=== PATIENT | female | born 1990 | race Caucasian/White ===

== ENCOUNTER 2018-04-11 12:55 | Emergency (ER) | payer OTHER, SELFPAY ==
[2018-04-11 12:59] VITALS: BP 112/78; PULSE 75; RESP 18; TEMP 37.1; O2SAT 100; BMI 29.4
--- NOTE | 2018-04-11 15:24 | ED.ABDPAIN ---
HPI - Abdominal Pain <JAZMIN Garcia - Last Filed: 04/11/18 21:44> General Chief Complaint: Abdominal Pain Stated Complaint: abdominal pain Time Seen by Provider: 04/11/18 15:23 History of Present Illness HPI narrative: 27-year-old female currently 5 weeks here for bilateral lower pelvic pain for the last couple of weeks. Patient states that she has been treated by her OB provider for same symptoms and was provided with antibiotics symptoms had not resolved. She denies any vaginal bleeding. She denies any vaginal discharge. No urinary symptoms. Last bowel movement was yesterday and was unremarkable. She denies any fevers or chills. No stressors or relievers of her symptoms. She had a recent pelvic ultrasound and was negative. MD complaint: abdominal pain Related Data Home Medications Medication Instructions Recorded Confirmed amoxicillin 125 mg PO TID 04/11/18 04/11/18 Allergies Allergy/AdvReac Type Severity Reaction Status Date / Time [facility] Allergy Verified 04/11/18 13:06 Review of Systems <JAZMIN Garcia - Last Filed: 04/11/18 21:44> Constitutional Denies chills, Denies fever(s), Denies lethargy and Denies weakness Eyes Denies change in vision, Denies eye discharge, Denies irritation and Denies loss of vision Cardiovascular Denies chest pain, Denies irregular heart rhythm, Denies lightheadedness, Denies palpitations, Denies dyspnea, Denies dyspnea on exertion and Denies orthopnea Respiratory Denies cough, Denies dyspnea, Denies dyspnea on exertion and Denies wheezing Gastrointestinal Gastrointestinal: Reports abdominal pain Genitourinary Denies hematuria, Denies flank pain, Denies urinary incontinence and Denies urinary urgency Musculoskeletal Denies back pain, Denies muscle weakness, Denies numbness and Denies tingling Integumentary/Breasts Denies pruritus, Denies erythema, Denies rash and Denies wounds Neurologic Denies confusion, Denies loss of vision, Denies numbness, Denies tingling and Denies weakness Psychiatric Denies anxiety, Denies confusion, Denies depression, Denies homicidal ideation and Denies suicidal ideation Endocrine Denies palpitations Hematologic/Lymphatic Denies easy bruising Allergic/Immunologic Denies wheezing Exam <JAZMIN Garcia - Last Filed: 04/11/18 21:44> Initial Vital Signs Initial Vital Signs: Vital Signs Temperature 98.7 F 04/11/18 12:59 Pulse Rate 75 04/11/18 12:59 Respiratory Rate 18 04/11/18 12:59 Blood Pressure 112/78 04/11/18 12:59 Pulse Oximetry 100 04/11/18 12:59 Const General: cooperative and well developed Nutritional Appearance: well nourished Orientation: alert, awake, oriented x3 and not confused [facility] Mouth: oral mucosae normal and moist mucous membranes Eyes Conjunctivae: conjunctivae normal Sclera: sclerae normal Pupils: PERRL EOM: EOM intact bilaterally Resp Effort & Inspection: normal respiratory effort, able to speak in complete sentences, no respiratory distress and no use of accessory muscles Auscultation: clear to auscultation bilaterally, no rales, no rhonchi and no wheezes Cardio Rate: regular rate Rhythm: regular rhythm Heart Sounds: no click, no gallops, no murmurs and no rubs GI Inspection: non-distended Palpation: soft, no hepatosplenomegaly, No guarding, No pulsatile mass and tender (Tender to bilateral suprapubic region. ) Auscultation: normal bowel sounds Skin General: no rashes or lesions noted, No jaundice and No petechiae Neuro General: alert, oriented x3, gait normal and no focal motor deficits Speech: speech normal <Selina Ventura DO - Last Filed: 04/12/18 08:38> Initial Vital Signs Initial Vital Signs: Vital Signs Temperature 98.7 F 04/11/18 12:59 Pulse Rate 75 04/11/18 12:59 Respiratory Rate 18 04/11/18 12:59 Blood Pressure 112/78 04/11/18 12:59 Pulse Oximetry 100 04/11/18 12:59 Course <JAZMIN Garcia - Last Filed: 04/11/18 21:44> Orders Ordered: Discontinued Medications Sodium Chloride (Normal Saline 0.9%) 1,000 mls @ 1,000 mls/hr IV CONT DAGO Last Infusion: 04/11/18 17:32 Dose: 0 mls/hr Admin: 04/11/18 16:28 Dose: 1,000 mls/hr Vital Signs - 8 hr 04/11/18 16:28 07/18/18 18:27 Temperature 97.4 F L Pulse Rate 84 51 L Respiratory Rate 20 20 Blood Pressure 103/67 Blood Pressure [Right Arm] 105/72 Pulse Oximetry 99 98 <Selina Ventura DO - Last Filed: 04/12/18 08:38> Orders Ordered: Discontinued Medications Sodium Chloride (Normal Saline 0.9%) 1,000 mls @ 1,000 mls/hr IV CONT DAGO Last Infusion: 04/11/18 17:32 Dose: 0 mls/hr Admin: 04/11/18 16:28 Dose: 1,000 mls/hr Vital Signs - 8 hr 04/11/18 16:28 04/11/18 18:27 Temperature 97.4 F L Pulse Rate 84 51 L Respiratory Rate 20 20 Blood Pressure 103/67 Blood Pressure [Right Arm] 105/72 Pulse Oximetry 99 98 MDM - Abdominal Pain <JAZMIN Garcia - Last Filed: 04/11/18 21:44> Lab Data Result diagrams: 04/11/18 16:05 04/11/18 16:05 Lab Results 04/11/18 04/11/18 Range/Units 16:05 16:05 WBC 7.8 (4.5-11.0) X10^3/uL RBC 4.85 (4.0-5.2) X10^6/uL Hgb 12.6 (12.0-16.0) g/dL Hct 39.3 (36-46) % MCV 81.2 (80-100) fL MCH 25.9 L (26-34) PG MCHC 32.0 (30-36) % RDW 17.3 H (11.6-14.8) % Plt Count 309 (150-400) X10^3/uL Neut % (Auto) 60.4 (50-75) % Lymph % (Auto) 29.3 (25-40) % [place] % (Auto) 8.4 (3-14) % Eos % (Auto) 1.3 L (2-4) % Baso % (Auto) 0.6 (0-2) % Neut # (Auto) 4700 (4199-9523) /uL Sodium 144 (137-145) mmol/L Potassium 4.3 (3.4-5.1) mmol/L Chloride 103 (98-107) mmol/L Carbon Dioxide 29 (22-32) mmol/L BUN 10 (7-17) mg/dL Creatinine 0.70 (0.52-1.04) mg/dL Estimated GFR > 60.0 (>60) mL/min BUN/Creatinine Ratio 14.3 (6-22) Glucose 88 (70-100) mg/dL Calcium 9.4 (8.4-10.2) mg/dL Total Bilirubin 0.6 (0.2-1.3) mg/dL AST 37 H (14-36) IU/L ALT 49 (9-52) IU/L Alkaline Phosphatase 74 (38-126) U/L Total Protein 7.0 (6.3-8.2) g/dL Albumin 4.3 (3.5-5.0) g/dL Globulin 2.7 (1.7-4.1) g/dL Albumin/Globulin Ratio 1.6 (1.0-2.8) Lipase 155 (23-300) U/L Point of care testing: Point of Care Testing Test Results Negative Urine Dip Bedside Urine Glucose Negative Bedside Urine Bilirubin - Negative Bedside Urine Ketone - Negative Urine Specific [place] 1.030 Bedside Urine Occult Blood - Negative Bedside Urine pH 6.0 Bedside Urine Protein - Negative Bedside Urine Urobilinogen - Negative Bedside Urine Nitrite - Negative Bedside Urine Leukocytes - Negative Esterase MDM Narrative Medical decision making narrative: CBC and Chem panel were obtained today unremarkable. Lipase was negative urinalysis was negative for urinary tract infection. CT of the abdomen and pelvis was obtained and was not negative for any acute findings. Doubtful that her symptoms are bacterial as she has had multiple antibiotic regimens that have not helped her symptoms. No emergent cause of her pain is found today suspect pain may be secondary to recent delivery she is referred to OBGYN she states that she has an appointment in the next few days for re-evaluation. Use [id number] ibuprofen as needed for any discomfort. Return emergency room for any worsening symptoms. <Selina Ventura, DO - Last Filed: 04/12/18 08:38> Lab Data Lab Results 04/11/18 04/11/18 Range/Units 16:05 16:05 WBC 7.8 (4.5-11.0) X10^3/uL RBC 4.85 (4.0-5.2) X10^6/uL Hgb 12.6 (12.0-16.0) g/dL Hct 39.3 (36-46) % MCV 81.2 (80-100) fL MCH 25.9 L (26-34) PG MCHC 32.0 (30-36) % RDW 17.3 H (11.6-14.8) % Plt Count 309 (150-400) X10^3/uL Neut % (Auto) 60.4 (50-75) % Lymph % (Auto) 29.3 (25-40) % [place] % (Auto) 8.4 (3-14) % Eos % (Auto) 1.3 L (2-4) % Baso % (Auto) 0.6 (0-2) % Neut # (Auto) 4700 (3684-5082) /uL Sodium 144 (137-145) mmol/L Potassium 4.3 (3.4-5.1) mmol/L Chloride 103 (98-107) mmol/L Carbon Dioxide 29 (22-32) mmol/L BUN 10 (7-17) mg/dL Creatinine 0.70 (0.52-1.04) mg/dL Estimated GFR > 60.0 (>60) mL/min BUN/Creatinine Ratio 14.3 (6-22) Glucose 88 (70-100) mg/dL Calcium 9.4 (8.4-10.2) mg/dL Total Bilirubin 0.6 (0.2-1.3) mg/dL AST 37 H (14-36) IU/L ALT 49 (9-52) IU/L Alkaline Phosphatase 74 (38-126) U/L Total Protein 7.0 (6.3-8.2) g/dL Albumin 4.3 (3.5-5.0) g/dL Globulin 2.7 (1.7-4.1) g/dL Albumin/Globulin Ratio 1.6 (1.0-2.8) Lipase 155 (23-300) U/L Point of care testing: Point of Care Testing Test Results Negative Urine Dip Bedside Urine Glucose Negative Bedside Urine Bilirubin - Negative Bedside Urine Ketone - Negative Urine Specific [place] 1.030 Bedside Urine Occult Blood - Negative Bedside Urine pH 6.0 Bedside Urine Protein - Negative Bedside Urine Urobilinogen - Negative Bedside Urine Nitrite - Negative Bedside Urine Leukocytes - Negative Esterase Imaging Data CT scan - abdomen: Radiologist's impression: PROCEDURE: CT ABDOMEN PELVIS W CON INDICATIONS: Bilateral lower abdominal right greater than left TECHNIQUE: After the administration of intravenous contrast, 5 mm thick sections acquired from the diaphragm to the symphysis. 5 mm coronal and sagittal reformats were acquired. For radiation dose reduction, the following was used: automated exposure control, adjustment of mA and/or kV according to patient size. COMPARISON: None. FINDINGS: Image quality: Excellent. ABDOMEN: Lung bases: Lung bases are clear. Heart size is normal. Solid organs: Liver is normal in size and enhancement. Gallbladder unremarkable. Biliary system is non dilated. Pancreas enhances normally. Spleen is normal in size and enhancement. No adrenal nodules. Kidneys demonstrate normal size and enhancement, without hydronephrosis. Peritoneum and bowel: Bowel loops demonstrate normal wall thickness and caliber. No free fluid or air. The appendix appears normal Nodes and vessels: No retroperitoneal or mesenteric adenopathy by size criteria. Aorta and inferior vena cava are normal in size. Miscellaneous: Broad-based midline laxity of the ventral abdominal wall PELVIS: Genitourinary: Bladder is partially collapsed otherwise unremarkable. The uterus appears diffusely enlarged and heterogeneous, presumably appearance. Miscellaneous: No inguinal hernias or adenopathy. Bones: No suspicious bony lesions. No vertebral body compression fractures. IMPRESSION: Overall, no acute abnormality seen. Normal appendix. Presumed appearance of the uterus. Broad-based midline laxity of the anterior abdominal wall. Dictated by: Emeka Meyer M.D. on 04/11/2018 at 16:58 Discharge Plan Departure Patient Disposition: Home, Self-Care Clinical Impression: Abdominal pain Discharge Date/Time: 04/11/18 18:29 Interventions: ED Discharge Assessment Last Done: 04/11/18 18:27 Instructions: DI for Abdominal Pain-Adult Activity Restrictions/Additional Instructions: Laboratory results and CT was unremarkable today. No emergent cause of a your pelvic/abdominal pain is found today. Suspect pain is secondary to recent delivery follow up with OBGYN in the next few days for re-evaluation. Use [id number] ibuprofen as needed for any discomfort. For any worsening symptoms return to the emergency room. Prescriptions: No Action amoxicillin 125 mg Tablet,Chewable 125 mg PO TID RF: 0 Referrals: [facility] [Provider Group] <Selina Ventura DO - Last Filed: 04/12/18 08:38> Cosign ED Attending Cosignature Attestation: I was immediately available in the department for consultation. Documentation has been reviewed. I agree with assessment and plan.
--- NOTE | 2018-04-11 15:30 | DIET.PN ---
Verbal orders given to discontinue IV orders and to call lab for a lab draw for blood samples at this time. Provider does not want IV fluids at this time as well. No new orders.
--- NOTE | 2018-04-11 16:08 | DI.CT.S_ITS ---
PROCEDURE: CT ABDOMEN PELVIS W CON INDICATIONS: Bilateral lower abdominal right greater than left TECHNIQUE: After the administration of intravenous contrast, 5 mm thick sections acquired from the diaphragm to the symphysis. 5 mm coronal and sagittal reformats were acquired. For radiation dose reduction, the following was used: automated exposure control, adjustment of mA and/or kV according to patient size. COMPARISON: None. FINDINGS: Image quality: Excellent. ABDOMEN: Lung bases: Lung bases are clear. Heart size is normal. Solid organs: Liver is normal in size and enhancement. Gallbladder unremarkable. Biliary system is non dilated. Pancreas enhances normally. Spleen is normal in size and enhancement. No adrenal nodules. Kidneys demonstrate normal size and enhancement, without hydronephrosis. Peritoneum and bowel: Bowel loops demonstrate normal wall thickness and caliber. No free fluid or air. The appendix appears normal Nodes and vessels: No retroperitoneal or mesenteric adenopathy by size criteria. Aorta and inferior vena cava are normal in size. Miscellaneous: Broad-based midline laxity of the ventral abdominal wall PELVIS: Genitourinary: Bladder is partially collapsed otherwise unremarkable. The uterus appears diffusely enlarged and heterogeneous, presumably appearance. Miscellaneous: No inguinal hernias or adenopathy. Bones: No suspicious bony lesions. No vertebral body compression fractures. IMPRESSION: Overall, no acute abnormality seen. Normal appendix. Presumed appearance of the uterus. Broad-based midline laxity of the anterior abdominal wall. Dictated by: Emeka Meyre M.D. on 04/11/2018 at 16:58 Approved by: Emeka Meyer M.D. on 04/11/2018 at 17:02
[2018-04-11 16:18] LABS: Add Manual Diff / Slide Review NO; Basophils Percent Auto 0.6 % (0-2); Eosinophils Percent Auto 1.3 % (2-4); Hematocrit 39.3 % (36-46); Hemoglobin 12.6 g/dL (12.0-16.0); Lymphocytes Percent Auto 29.3 % (25-40); Mean Corpuscular Hemoglobin 25.9 PG (26-34); Mean Corpuscular Volume 81.2 fL (80-100); Monocytes Percent Auto 8.4 % (3-14); Neutrophils Absolute Auto 4700 /uL (3000-5900); Neutrophils Percent Auto 60.4 % (50-75); Platelet Count 309 X10^3/uL (150-400); Red Blood Cell Count 4.85 X10^6/uL (4.0-5.2); Red Cell Distribution Width 17.3 % (11.6-14.8); White Blood Cell Count 7.8 X10^3/uL (4.5-11.0)
--- NOTE | 2018-04-11 16:27 | PC.NURSE ---
provider requesting IV now, and 1000ml iv fluid bolus of NS
[2018-04-11 16:28] VITALS: BP 105/72; PULSE 84; RESP 20; O2SAT 99
[2018-04-11] MEDS: SODIUM CHLORIDE 0.9% 1,000 ML 1000 ML IV (16:28)
[2018-04-11 16:31] LABS: Alanine Aminotransferase 49 IU/L (9-52); Albumin 4.3 g/dL (3.5-5.0); Albumin Globulin Ratio 1.6 (1.0-2.8); Alkaline Phosphatase 74 U/L (38-126); Aspartate Aminotransferase 37 IU/L (14-36); BUN Creatinine Ratio 14.3 (6-22); Bilirubin Total 0.6 mg/dL (0.2-1.3); Blood Urea Nitrogen 10 mg/dL (7-17); Calcium 9.4 mg/dL (8.4-10.2); Carbon Dioxide 29 mmol/L (22-32); Chloride 103 mmol/L (98-107); Estimated Glomerular Filt Rate > 60.0 mL/min (>60); Globulin 2.7 g/dL (1.7-4.1); Glucose 88 mg/dL (70-100); HEMOLYSIS < 15 (0-50); Lipase 155 U/L (23-300); Potassium 4.3 mmol/L (3.4-5.1); Sodium 144 mmol/L (137-145)
--- NOTE | 2018-04-11 18:11 | ED_ITS ---
HPI - Abdominal Pain <JAZMIN Garcia - Last Filed: 04/11/18 21:44> General Chief Complaint: Abdominal Pain Stated Complaint: abdominal pain Time Seen by Provider: 04/11/18 15:23 History of Present Illness HPI narrative: 27-year-old female currently 5 weeks here for bilateral lower pelvic pain for the last couple of weeks. Patient states that she has been treated by her OB provider for same symptoms and was provided with antibiotics symptoms had not resolved. She denies any vaginal bleeding. She denies any vaginal discharge. No urinary symptoms. Last bowel movement was yesterday and was unremarkable. She denies any fevers or chills. No stressors or relievers of her symptoms. She had a recent pelvic ultrasound and was negative. MD complaint: abdominal pain Related Data Home Medications Medication Instructions Recorded Confirmed amoxicillin 125 mg PO TID 04/11/18 04/11/18 Allergies Allergy/AdvReac Type Severity Reaction Status Date / Time cefaclor [From [facility]] Allergy Verified 04/11/18 13:06 Review of Systems <JAZMIN Garcia - Last Filed: 04/11/18 21:44> Constitutional Denies chills, Denies fever(s), Denies lethargy and Denies weakness Eyes Denies change in vision, Denies eye discharge, Denies irritation and Denies loss of vision Cardiovascular Denies chest pain, Denies irregular heart rhythm, Denies lightheadedness, Denies palpitations, Denies dyspnea, Denies dyspnea on exertion and Denies orthopnea Respiratory Denies cough, Denies dyspnea, Denies dyspnea on exertion and Denies wheezing Gastrointestinal Gastrointestinal: Reports abdominal pain Genitourinary Denies hematuria, Denies flank pain, Denies urinary incontinence and Denies urinary urgency Musculoskeletal Denies back pain, Denies muscle weakness, Denies numbness and Denies tingling Integumentary/Breasts Denies pruritus, Denies erythema, Denies rash and Denies wounds Neurologic Denies confusion, Denies loss of vision, Denies numbness, Denies tingling and Denies weakness Psychiatric Denies anxiety, Denies confusion, Denies depression, Denies homicidal ideation and Denies suicidal ideation Endocrine Denies palpitations Hematologic/Lymphatic Denies easy bruising Allergic/Immunologic Denies wheezing Exam <JAZMIN Garcia - Last Filed: 04/11/18 21:44> Initial Vital Signs Initial Vital Signs: Vital Signs Temperature 98.7 F 04/11/18 12:59 Pulse Rate 75 04/11/18 12:59 Respiratory Rate 18 04/11/18 12:59 Blood Pressure 112/78 04/11/18 12:59 Pulse Oximetry 100 04/11/18 12:59 Const General: cooperative and well developed Nutritional Appearance: well nourished Orientation: alert, awake, oriented x3 and not confused [facility] Mouth: oral mucosae normal and moist mucous membranes Eyes Conjunctivae: conjunctivae normal Sclera: sclerae normal Pupils: PERRL EOM: EOM intact bilaterally Resp Effort & Inspection: normal respiratory effort, able to speak in complete sentences, no respiratory distress and no use of accessory muscles Auscultation: clear to auscultation bilaterally, no rales, no rhonchi and no wheezes Cardio Rate: regular rate Rhythm: regular rhythm Heart Sounds: no click, no gallops, no murmurs and no rubs GI Inspection: non-distended Palpation: soft, no hepatosplenomegaly, No guarding, No pulsatile mass and tender (Tender to bilateral suprapubic region. ) Auscultation: normal bowel sounds Skin General: no rashes or lesions noted, No jaundice and No petechiae Neuro General: alert, oriented x3, gait normal and no focal motor deficits Speech: speech normal <Selina Ventura DO - Last Filed: 04/12/18 08:38> Initial Vital Signs Initial Vital Signs: Vital Signs Temperature 98.7 F 04/11/18 12:59 Pulse Rate 75 04/11/18 12:59 Respiratory Rate 18 04/11/18 12:59 Blood Pressure 112/78 04/11/18 12:59 Pulse Oximetry 100 04/11/18 12:59 Course <JAZMIN Garcia - Last Filed: 04/11/18 21:44> Orders Ordered: Discontinued Medications Sodium Chloride (Normal Saline 0.9%) 1,000 mls @ 1,000 mls/hr IV CONT DAGO Last Infusion: 04/11/18 17:32 Dose: 0 mls/hr Admin: 04/11/18 16:28 Dose: 1,000 mls/hr Vital Signs - 8 hr 04/11/18 16:28 07/18/18 18:27 Temperature 97.4 F L Pulse Rate 84 51 L Respiratory Rate 20 20 Blood Pressure 103/67 Blood Pressure [Right Arm] 105/72 Pulse Oximetry 99 98 <Selina Ventura DO - Last Filed: 04/12/18 08:38> Orders Ordered: Discontinued Medications Sodium Chloride (Normal Saline 0.9%) 1,000 mls @ 1,000 mls/hr IV CONT DAGO Last Infusion: 04/11/18 17:32 Dose: 0 mls/hr Admin: 04/11/18 16:28 Dose: 1,000 mls/hr Vital Signs - 8 hr 04/11/18 16:28 04/11/18 18:27 Temperature 97.4 F L Pulse Rate 84 51 L Respiratory Rate 20 20 Blood Pressure 103/67 Blood Pressure [Right Arm] 105/72 Pulse Oximetry 99 98 MDM - Abdominal Pain <JAZMIN Garcia - Last Filed: 04/11/18 21:44> Lab Data Result diagrams: 04/11/18 16:05 04/11/18 16:05 Lab Results 04/11/18 04/11/18 Range/Units 16:05 16:05 WBC 7.8 (4.5-11.0) X10^3/uL RBC 4.85 (4.0-5.2) X10^6/uL Hgb 12.6 (12.0-16.0) g/dL Hct 39.3 (36-46) % MCV 81.2 (80-100) fL MCH 25.9 L (26-34) PG MCHC 32.0 (30-36) % RDW 17.3 H (11.6-14.8) % Plt Count 309 (150-400) X10^3/uL Neut % (Auto) 60.4 (50-75) % Lymph % (Auto) 29.3 (25-40) % [place]illi[place] % (Auto) 8.4 (3-14) % Eos % (Auto) 1.3 L (2-4) % Baso % (Auto) 0.6 (0-2) % Neut # (Auto) 4700 (6927-6782) /uL Sodium 144 (137-145) mmol/L Potassium 4.3 (3.4-5.1) mmol/L Chloride 103 (98-107) mmol/L Carbon Dioxide 29 (22-32) mmol/L BUN 10 (7-17) mg/dL Creatinine 0.70 (0.52-1.04) mg/dL Estimated GFR > 60.0 (>60) mL/min BUN/Creatinine Ratio 14.3 (6-22) Glucose 88 (70-100) mg/dL Calcium 9.4 (8.4-10.2) mg/dL Total Bilirubin 0.6 (0.2-1.3) mg/dL AST 37 H (14-36) IU/L ALT 49 (9-52) IU/L Alkaline Phosphatase 74 (38-126) U/L Total Protein 7.0 (6.3-8.2) g/dL Albumin 4.3 (3.5-5.0) g/dL Globulin 2.7 (1.7-4.1) g/dL Albumin/Globulin Ratio 1.6 (1.0-2.8) Lipase 155 (23-300) U/L Point of care testing: Point of Care Testing Test Results Negative Urine Dip Bedside Urine Glucose Negative Bedside Urine Bilirubin - Negative Bedside Urine Ketone - Negative Urine Specific [place] 1.030 Bedside Urine Occult Blood - Negative Bedside Urine pH 6.0 Bedside Urine Protein - Negative Bedside Urine Urobilinogen - Negative Bedside Urine Nitrite - Negative Bedside Urine Leukocytes - Negative Esterase MDM Narrative Medical decision making narrative: CBC and Chem panel were obtained today unremarkable. Lipase was negative urinalysis was negative for urinary tract infection. CT of the abdomen and pelvis was obtained and was not negative for any acute findings. Doubtful that her symptoms are bacterial as she has had multiple antibiotic regimens that have not helped her symptoms. No emergent cause of her pain is found today suspect pain may be secondary to recent delivery she is referred to OBGYN she states that she has an appointment in the next few days for re-evaluation. Use [id number] ibuprofen as needed for any discomfort. Return emergency room for any worsening symptoms. <Selina Ventura, DO - Last Filed: 04/12/18 08:38> Lab Data Lab Results 04/11/18 04/11/18 Range/Units 16:05 16:05 WBC 7.8 (4.5-11.0) X10^3/uL RBC 4.85 (4.0-5.2) X10^6/uL Hgb 12.6 (12.0-16.0) g/dL Hct 39.3 (36-46) % MCV 81.2 (80-100) fL MCH 25.9 L (26-34) PG MCHC 32.0 (30-36) % RDW 17.3 H (11.6-14.8) % Plt Count 309 (150-400) X10^3/uL Neut % (Auto) 60.4 (50-75) % Lymph % (Auto) 29.3 (25-40) % Gilliam % (Auto) 8.4 (3-14) % Eos % (Auto) 1.3 L (2-4) % Baso % (Auto) 0.6 (0-2) % Neut # (Auto) 4700 (4464-1792) /uL Sodium 144 (137-145) mmol/L Potassium 4.3 (3.4-5.1) mmol/L Chloride 103 (98-107) mmol/L Carbon Dioxide 29 (22-32) mmol/L BUN 10 (7-17) mg/dL Creatinine 0.70 (0.52-1.04) mg/dL Estimated GFR > 60.0 (>60) mL/min BUN/Creatinine Ratio 14.3 (6-22) Glucose 88 (70-100) mg/dL Calcium 9.4 (8.4-10.2) mg/dL Total Bilirubin 0.6 (0.2-1.3) mg/dL AST 37 H (14-36) IU/L ALT 49 (9-52) IU/L Alkaline Phosphatase 74 (38-126) U/L Total Protein 7.0 (6.3-8.2) g/dL Albumin 4.3 (3.5-5.0) g/dL Globulin 2.7 (1.7-4.1) g/dL Albumin/Globulin Ratio 1.6 (1.0-2.8) Lipase 155 (23-300) U/L Point of care testing: Point of Care Testing Test Results Negative Urine Dip Bedside Urine Glucose Negative Bedside Urine Bilirubin - Negative Bedside Urine Ketone - Negative Urine Specific [place] 1.030 Bedside Urine Occult Blood - Negative Bedside Urine pH 6.0 Bedside Urine Protein - Negative Bedside Urine Urobilinogen - Negative Bedside Urine Nitrite - Negative Bedside Urine Leukocytes - Negative Esterase Imaging Data CT scan - abdomen: Radiologist's impression: PROCEDURE: CT ABDOMEN PELVIS W CON INDICATIONS: Bilateral lower abdominal right greater than left TECHNIQUE: After the administration of intravenous contrast, 5 mm thick sections acquired from the diaphragm to the symphysis. 5 mm coronal and sagittal reformats were acquired. For radiation dose reduction, the following was used: automated exposure control, adjustment of mA and/or kV according to patient size. COMPARISON: None. FINDINGS: Image quality: Excellent. ABDOMEN: Lung bases: Lung bases are clear. Heart size is normal. Solid organs: Liver is normal in size and enhancement. Gallbladder unremarkable. Biliary system is non dilated. Pancreas enhances normally. Spleen is normal in size and enhancement. No adrenal nodules. Kidneys demonstrate normal size and enhancement, without hydronephrosis. Peritoneum and bowel: Bowel loops demonstrate normal wall thickness and caliber. No free fluid or air. The appendix appears normal Nodes and vessels: No retroperitoneal or mesenteric adenopathy by size criteria. Aorta and inferior vena cava are normal in size. Miscellaneous: Broad-based midline laxity of the ventral abdominal wall PELVIS: Genitourinary: Bladder is partially collapsed otherwise unremarkable. The uterus appears diffusely enlarged and heterogeneous, presumably appearance. Miscellaneous: No inguinal hernias or adenopathy. Bones: No suspicious bony lesions. No vertebral body compression fractures. IMPRESSION: Overall, no acute abnormality seen. Normal appendix. Presumed appearance of the uterus. Broad-based midline laxity of the anterior abdominal wall. Dictated by: Emeka Meyer M.D. on 04/11/2018 at 16:58 Discharge Plan Departure Patient Disposition: Home, Self-Care Clinical Impression: Abdominal pain Discharge Date/Time: 04/11/18 18:29 Interventions: ED Discharge Assessment Last Done: 04/11/18 18:27 Instructions: DI for Abdominal Pain-Adult Activity Restrictions/Additional Instructions: Laboratory results and CT was unremarkable today. No emergent cause of a your pelvic/abdominal pain is found today. Suspect pain is secondary to recent delivery follow up with OBGYN in the next few days for re-evaluation. Use over- the-counter ibuprofen as needed for any discomfort. For any worsening symptoms return to the emergency room. Prescriptions: No Action amoxicillin 125 mg Tablet,Chewable 125 mg PO TID RF: 0 Referrals: [facility] [Provider Group] <Selina Ventura DO - Last Filed: 04/12/18 08:38> Cosign ED Attending Cosignature Attestation: I was immediately available in the department for consultation. Documentation has been reviewed. I agree with assessment and plan.
[2018-04-11 18:27] VITALS: BP 103/67; PULSE 51; RESP 20; TEMP 36.3; O2SAT 98
== END 2018-04-11 18:29 | disposition home or self-care (01) ==
PROVIDERS: Emergency Medicine; Emergency Provider Nurse Practitioner Family
DX: R10.9 Unspecified abdominal pain (principal)
CPT/HCPCS: 36591; 74177; 80053; 81003; 81025; 83690; 85025; 96360; 99283; 99285; Q9967

== ENCOUNTER 2019-04-17 13:45 | Emergency (ER) | payer OTHER, SELFPAY ==
[2019-04-17 13:54] VITALS: BP 124/86; PULSE 66; RESP 16; O2SAT 100
--- NOTE | 2019-04-17 14:10 | ED.ABDPAIN ---
HPI - Abdominal Pain General Chief Complaint: Abdominal Pain Stated Complaint: Abd pain lt side but moving Time Seen by Provider: 04/17/19 13:58 Source: patient and family Mode of arrival: ambulatory Limitations: no limitations History of Present Illness HPI narrative: 28-year-old female comes emergency department complaint of abdominal pain that is been going on for about a year. She states pretty much constant but waxes and wanes in intensity. She states it is mostly on the left side radiating over to the right. She states in her lower abdomen. She states she has had chronic nausea with it but intermittently. She does not had any vomiting. She states normal bowel movements. She states normally urination with no dysuria urgency or frequency. She denies any vaginal bleeding or discharge. 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 Orta. She states that because she is continuing to have her symptoms and they are perhaps a little bit worse they recommended she come in for evaluation and ultrasound. Patient has a prescription for hydrocodone, her last dose was last night. She defers anything additional for pain currently. She states that she does have some tingling in her lower extremities. She states that she has not had any falls, no weakness currently. No loss of bowel or bladder control. She denies any other medical issues, denies any prior surgeries. Related Data Home Medications Medication Instructions Recorded Confirmed hydrocodone-acetaminophen 1 tab PO PRN PRN 04/17/19 04/17/19 ibuprofen 1 dose PO PRN PRN 04/17/19 04/17/19 Allergies Allergy/AdvReac Type Severity Reaction Status Date / Time cefaclor [From [facility]] Allergy Verified 04/11/18 13:06 Review of Systems Review of Systems ROS Unobtainable: All systems reviewed & are unremarkable except as noted in HPI and below Constitutional Denies chills, Denies fever(s) and Denies weakness Cardiovascular Denies chest pain and Denies dyspnea Respiratory Denies dyspnea Gastrointestinal Gastrointestinal: Reports abdominal pain, Denies melena, Denies hematochezia, Denies change in bowel habits, Denies diarrhea, Reports nausea (intermittent) and Denies vomiting Genitourinary Denies abnormal menses, Denies abnormal vaginal bleeding, Denies hematuria, Denies urinary frequency, Denies dysuria, Reports pelvic pain, Denies flank pain, Denies urinary incontinence, Denies urinary hesitancy, Denies urinary urgency, Denies vaginal discharge and Denies vaginal odor Musculoskeletal Denies abnormal gait, Denies back pain, Denies numbness and Reports tingling Neurologic Denies abnormal gait, Denies numbness, Reports tingling and Denies weakness [facility] Social History Smoking Status: Never smoker Social History Smoking Status: Never smoker Exam Narrative Exam Narrative: GENERAL: Alert and oriented x three, well nourished, well appearing female in no acute distress. HEENT: Head normocephalic, atraumatic, EOMI, pupils reactive, face symmetric, moist mucous membranes NECK: Supple, full range of motion CARDIOVASCULAR: Regular rate and rhythm without murmurs, rubs or gallops. RESPIRATORY: Breath sounds equal bilaterally, no wheezes rales or rhonchi. ABDOMEN: Soft, mild tenderness in bilateral lower abdomen. Normoactive bowel sounds all 4 quadrants. No guarding or rebound, rigidity, no mass : No CVA tenderness EXTREMITIES: Normal range of motion, no clubbing or edema. Neurovascularly intact NEUROLOGICAL: Cranial nerves II through XII grossly intact. Moving all extremities SKIN: Warm, dry, no petechiae, no rashes or lesions. Initial Vital Signs Initial Vital Signs: Vital Signs Pulse Rate 66 04/17/19 13:54 Respiratory Rate 16 04/17/19 13:54 Blood Pressure 124/86 04/17/19 13:54 Pulse Oximetry 100 04/17/19 13:54 Course Orders Ordered: ED Orders 04/17/19 14:11 US pelvic complete Stat 04/17/19 14:19 Complete Blood Count AUTO DIFF Stat Comprehensive Metabolic Panel Stat Lipase Stat 04/17/19 14:55 Urine Culture Stat Urine Microscopic Stat Vital Signs - 8 hr 04/17/19 13:54 04/17/19 16:08 Temperature 98.1 F Pulse Rate 66 72 Respiratory Rate 16 18 Blood Pressure 124/86 Blood Pressure [Left Arm] 102/72 Pulse Oximetry 100 98 MDM - Abdominal Pain Lab Data Attestation: I reviewed the patient's lab results. Result diagrams: 04/17/19 14:19 04/17/19 14:19 Lab Results 04/17/19 04/17/19 04/17/19 Range/Units 14:19 14:19 14:19 WBC 9.8 (4.5-11.0) X10^3/uL RBC 4.53 (4.0-5.2) X10^6/uL Hgb 13.4 (12.0-16.0) g/dL Hct 39.2 (36-46) % MCV 86.5 (80-100) fL MCH 29.6 (26-34) PG MCHC 34.3 (30-36) % RDW 12.7 (11.6-14.8) % Plt Count 355 (150-400) X10^3/uL Neut % (Auto) 61.0 (50-75) % Lymph % (Auto) 29.7 (25-40) % [place] % (Auto) 7.8 (3-14) % Eos % (Auto) 0.9 L (2-4) % Baso % (Auto) 0.6 (0-2) % Neut # (Auto) 6000 (7955-2427) /uL Lymph # (Auto) 2900 (9846-6870) /uL [place] # (Auto) 800 (0-900) /uL Eos # (Auto) 100 (0-450) /uL Baso # (Auto) 100 (0-100) /uL Sodium 140 (137-145) mmol/L Potassium 4.1 (3.4-5.1) mmol/L Chloride 106 (98-107) mmol/L Carbon Dioxide 25 (22-32) mmol/L BUN 7 (7-17) mg/dL Creatinine 0.70 (0.52-1.04) mg/dL Estimated GFR > 60.0 (>60) mL/min BUN/Creatinine Ratio 10.0 (6-22) Glucose 91 (70-100) mg/dL Calcium 9.4 (8.4-10.2) mg/dL Total Bilirubin 0.4 (0.2-1.3) mg/dL AST 18 (14-36) IU/L ALT 17 (9-52) IU/L Alkaline Phosphatase 59 (38-126) U/L Total Protein 7.1 (6.3-8.2) g/dL Albumin 4.2 (3.5-5.0) g/dL Globulin 2.9 (1.7-4.1) g/dL Albumin/Globulin Ratio 1.4 (1.0-2.8) Lipase 136 (23-300) U/L Urine RBC (0-5/HPF) Urine WBC (0-5/HPF) Ur Squamous Epith Cells (0-5/HPF) Urine Bacteria (None) Ur Culture Indicated? Micro UA Comment 04/17/19 Range/Units 14:55 WBC (4.5-11.0) X10^3/uL RBC (4.0-5.2) X10^6/uL Hgb (12.0-16.0) g/dL Hct (36-46) % MCV (80-100) fL MCH (26-34) PG MCHC (30-36) % RDW (11.6-14.8) % Plt Count (150-400) X10^3/uL Neut % (Auto) (50-75) % Lymph % (Auto) (25-40) % [place] % (Auto) (3-14) % Eos % (Auto) (2-4) % Baso % (Auto) (0-2) % Neut # (Auto) (5784-4856) /uL Lymph # (Auto) (7974-4766) /uL [place] # (Auto) (0-900) /uL Eos # (Auto) (0-450) /uL Baso # (Auto) (0-100) /uL Sodium (137-145) mmol/L Potassium (3.4-5.1) mmol/L Chloride (98-107) mmol/L Carbon Dioxide (22-32) mmol/L BUN (7-17) mg/dL Creatinine (0.52-1.04) mg/dL Estimated GFR (>60) mL/min BUN/Creatinine Ratio (6-22) Glucose (70-100) mg/dL Calcium (8.4-10.2) mg/dL Total Bilirubin (0.2-1.3) mg/dL AST (14-36) IU/L ALT (9-52) IU/L Alkaline Phosphatase (38-126) U/L Total Protein (6.3-8.2) g/dL Albumin (3.5-5.0) g/dL Globulin (1.7-4.1) g/dL Albumin/Globulin Ratio (1.0-2.8) Lipase (23-300) U/L Urine RBC 0-1/hpf (0-5/HPF) Urine WBC 0-1/hpf (0-5/HPF) Ur Squamous Epith Cells 0-1 /hpf (0-5/HPF) Urine Bacteria Moderate (10-30) H (None) Ur Culture Indicated? Specimen cultured Micro UA Comment Betty esterase + Point of care testing: Point of Care Testing Test Results Negative Urine Dip Bedside Urine Glucose Negative Bedside Urine Bilirubin - Negative Bedside Urine Ketone - Negative Urine Specific [place] 1.015 Bedside Urine Occult Blood +/- Bedside Urine pH 6.0 Bedside Urine Protein - Negative Bedside Urine Urobilinogen - Negative Bedside Urine Nitrite - Negative Bedside Urine Leukocytes +/- 15 Esterase Imaging Data pelvic US: Radiologist's impression: Lisset Diaz 28 F [address] [address] Ultrasound Report Signed Patient: Lisset Diaz MMR#: [id number] : 1990Acct:[id number] Age/Sex: 28 / FDate of Service: 04/17/19 Loc: ED Accession Number: [id number] Procedure: US pelvic complete Ordering Provider: Rosanne Mendez D.O. PROCEDURE: US PELVIC COMPLETE INDICATIONS: HX PELVIC CONGESTIVE SYNDROME; PAIN TECHNIQUE: Real-time scanning was performed of the pelvic organs, with image documentation. Additional endovaginal scanning was necessary due to incomplete visualization of the adnexal and endometrial structures by transabdominal scanning. COMPARISON: [facility], CT, CT ABDOMEN PELVIS W CON, 04/11/2018, 16:36. FINDINGS: Transabdominal scanning: Limited scanning through the kidneys shows no hydronephrosis. No pathologic free abdominal or pelvic fluid. Endovaginal scanning: Uterus: Uterus is normal in size at the 7.5 x 3.7 x 5.2 cm. The endometrium measures 9 mm in combined thickness. Increased vascularity along the periphery uterus is present. There is heterogeneity of the endometrium without a definable endometrial quality. No focal myometrial lesions are present. Ovaries: The right ovary measures 3.1 x 1.9 x 1.7 cm. The left ovary measures 2.3 x 1.9 x 3.3 cm. Both ovaries are normal in size without cystic or solid mass. Blood flow is demonstrated to both ovaries, which have a normal arterial Doppler waveform. IMPRESSION: 1. Mild heterogeneity of the uterus is nonspecific and may be within normal limits. No definable uterine abnormalities are appreciated. There is slight increased vascularity to the uterus itself, which may be seen in the setting of pelvic congestion syndrome. 2. Unremarkable ovaries. Dictated by: Henok Teixeira M.D. on 04/17/2019 at 14:25 Approved by: Henok Teixeira M.D. on 04/17/2019 at 14:28 [facility] Narrative Medical decision making narrative: Ultrasound shows some mild heterogeneity of the uterus which is nonspecific could be within normal limits. There is slight increased vascularity to the uterus itself which could be seen in the setting of pelvic congestion syndrome. Unremarkable ovaries. Lab work otherwise is. Patient's exam is fairly benign. Discussed with patient plan for DC home. She has hydrocodone at home which she can continue and to follow up with her physician. Labs were nondiagnostic. Patient has some bacteria urine positive for leukocyte esterase negative for nitrate and sent for culture. Discharge Plan Departure Patient Disposition: Home Clinical Impression: Abdominal pain Discharge Date/Time: 04/17/19 16:10 Interventions: ED Discharge Assessment Last Done: 04/17/19 16:10 Instructions: DI for Abdominal Pain-Adult Activity Restrictions/Additional Instructions: Follow up with your physician in the next week. Call for an appointment. Continue home medications including your pain medication as prescribed. Return to the emergency department for fevers greater 100.4 F, rapidly worsening pain, persistent vomiting, black or bloody stools, difficulty with urination, no vaginal bleeding or discharge or other new or concerning symptoms. Prescriptions: No Action ibuprofen 200 mg Tablet 1 dose PO PRN PRN (Reason: pain) RF: 0 hydrocodone-acetaminophen 1 tab PO PRN PRN (Reason: pain) RF: 0 Referrals: Savi Orta DO [Non-Staff] -
--- NOTE | 2019-04-17 14:15 | ED_ITS ---
HPI - Abdominal Pain General Chief Complaint: Abdominal Pain Stated Complaint: Abd pain lt side but moving Time Seen by Provider: 04/17/19 13:58 Source: patient and family Mode of arrival: ambulatory Limitations: no limitations History of Present Illness HPI narrative: 28-year-old female comes emergency department complaint of abdominal pain that is been going on for about a year. She states pretty much constant but waxes and wanes in intensity. She states it is mostly on the left side radiating over to the right. She states in her lower abdomen. She states she has had chronic nausea with it but intermittently. She does not had any vomiting. She states normal bowel movements. She states normally urination with no dysuria urgency or frequency. She denies any vaginal bleeding or discharge. 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 Orta. She states that because she is continuing to have her symptoms and they are perhaps a little bit worse they recommended she come in for evaluation and ultrasound. Patient has a prescription for hydrocodone, her last dose was last night. She defers anything additional for pain currently. She states that she does have some tingling in her lower extremities. She states that she has not had any falls, no weakness currently. No loss of bowel or bladder control. She denies any other medical issues, denies any prior surgeries. Related Data Home Medications Medication Instructions Recorded Confirmed hydrocodone-acetaminophen 1 tab PO PRN PRN 04/17/19 04/17/19 ibuprofen 1 dose PO PRN PRN 04/17/19 04/17/19 Allergies Allergy/AdvReac Type Severity Reaction Status Date / Time cefaclor [From [facility]] Allergy Verified 04/11/18 13:06 Review of Systems Review of Systems ROS Unobtainable: All systems reviewed & are unremarkable except as noted in HPI and below Constitutional Denies chills, Denies fever(s) and Denies weakness Cardiovascular Denies chest pain and Denies dyspnea Respiratory Denies dyspnea Gastrointestinal Gastrointestinal: Reports abdominal pain, Denies melena, Denies hematochezia, Denies change in bowel habits, Denies diarrhea, Reports nausea (intermittent) and Denies vomiting Genitourinary Denies abnormal menses, Denies abnormal vaginal bleeding, Denies hematuria, Denies urinary frequency, Denies dysuria, Reports pelvic pain, Denies flank pain, Denies urinary incontinence, Denies urinary hesitancy, Denies urinary urgency, Denies vaginal discharge and Denies vaginal odor Musculoskeletal Denies abnormal gait, Denies back pain, Denies numbness and Reports tingling Neurologic Denies abnormal gait, Denies numbness, Reports tingling and Denies weakness [facility] Social History Smoking Status: Never smoker Social History Smoking Status: Never smoker Exam Narrative Exam Narrative: GENERAL: Alert and oriented x three, well nourished, well appearing female in no acute distress. HEENT: Head normocephalic, atraumatic, EOMI, pupils reactive, face symmetric, moist mucous membranes NECK: Supple, full range of motion CARDIOVASCULAR: Regular rate and rhythm without murmurs, rubs or gallops. RESPIRATORY: Breath sounds equal bilaterally, no wheezes rales or rhonchi. ABDOMEN: Soft, mild tenderness in bilateral lower abdomen. Normoactive bowel sounds all 4 quadrants. No guarding or rebound, rigidity, no mass : No CVA tenderness EXTREMITIES: Normal range of motion, no clubbing or edema. Neurovascularly intact NEUROLOGICAL: Cranial nerves II through XII grossly intact. Moving all extremities SKIN: Warm, dry, no petechiae, no rashes or lesions. Initial Vital Signs Initial Vital Signs: Vital Signs Pulse Rate 66 04/17/19 13:54 Respiratory Rate 16 04/17/19 13:54 Blood Pressure 124/86 04/17/19 13:54 Pulse Oximetry 100 04/17/19 13:54 Course Orders Ordered: ED Orders 04/17/19 14:11 US pelvic complete Stat 04/17/19 14:19 Complete Blood Count AUTO DIFF Stat Comprehensive Metabolic Panel Stat Lipase Stat 04/17/19 14:55 Urine Culture Stat Urine Microscopic Stat Vital Signs - 8 hr 04/17/19 13:54 04/17/19 16:08 Temperature 98.1 F Pulse Rate 66 72 Respiratory Rate 16 18 Blood Pressure 124/86 Blood Pressure [Left Arm] 102/72 Pulse Oximetry 100 98 MDM - Abdominal Pain Lab Data Attestation: I reviewed the patient's lab results. Result diagrams: 04/17/19 14:19 04/17/19 14:19 Lab Results 04/17/19 04/17/19 04/17/19 Range/Units 14:19 14:19 14:19 WBC 9.8 (4.5-11.0) X10^3/uL RBC 4.53 (4.0-5.2) X10^6/uL Hgb 13.4 (12.0-16.0) g/dL Hct 39.2 (36-46) % MCV 86.5 (80-100) fL MCH 29.6 (26-34) PG MCHC 34.3 (30-36) % RDW 12.7 (11.6-14.8) % Plt Count 355 (150-400) X10^3/uL Neut % (Auto) 61.0 (50-75) % Lymph % (Auto) 29.7 (25-40) % Roberts % (Auto) 7.8 (3-14) % Eos % (Auto) 0.9 L (2-4) % Baso % (Auto) 0.6 (0-2) % Neut # (Auto) 6000 (3321-4343) /uL Lymph # (Auto) 2900 (4110-2417) /uL Roberts # (Auto) 800 (0-900) /uL Eos # (Auto) 100 (0-450) /uL Baso # (Auto) 100 (0-100) /uL Sodium 140 (137-145) mmol/L Potassium 4.1 (3.4-5.1) mmol/L Chloride 106 (98-107) mmol/L Carbon Dioxide 25 (22-32) mmol/L BUN 7 (7-17) mg/dL Creatinine 0.70 (0.52-1.04) mg/dL Estimated GFR > 60.0 (>60) mL/min BUN/Creatinine Ratio 10.0 (6-22) Glucose 91 (70-100) mg/dL Calcium 9.4 (8.4-10.2) mg/dL Total Bilirubin 0.4 (0.2-1.3) mg/dL AST 18 (14-36) IU/L ALT 17 (9-52) IU/L Alkaline Phosphatase 59 (38-126) U/L Total Protein 7.1 (6.3-8.2) g/dL Albumin 4.2 (3.5-5.0) g/dL Globulin 2.9 (1.7-4.1) g/dL Albumin/Globulin Ratio 1.4 (1.0-2.8) Lipase 136 (23-300) U/L Urine RBC (0-5/HPF) Urine WBC (0-5/HPF) Ur Squamous Epith Cells (0-5/HPF) Urine Bacteria (None) Ur Culture Indicated? Micro UA Comment 04/17/19 Range/Units 14:55 WBC (4.5-11.0) X10^3/uL RBC (4.0-5.2) X10^6/uL Hgb (12.0-16.0) g/dL Hct (36-46) % MCV (80-100) fL MCH (26-34) PG MCHC (30-36) % RDW (11.6-14.8) % Plt Count (150-400) X10^3/uL Neut % (Auto) (50-75) % Lymph % (Auto) (25-40) % Roberts % (Auto) (3-14) % Eos % (Auto) (2-4) % Baso % (Auto) (0-2) % Neut # (Auto) (6616-7988) /uL Lymph # (Auto) (1829-9695) /uL Roberts # (Auto) (0-900) /uL Eos # (Auto) (0-450) /uL Baso # (Auto) (0-100) /uL Sodium (137-145) mmol/L Potassium (3.4-5.1) mmol/L Chloride (98-107) mmol/L Carbon Dioxide (22-32) mmol/L BUN (7-17) mg/dL Creatinine (0.52-1.04) mg/dL Estimated GFR (>60) mL/min BUN/Creatinine Ratio (6-22) Glucose (70-100) mg/dL Calcium (8.4-10.2) mg/dL Total Bilirubin (0.2-1.3) mg/dL AST (14-36) IU/L ALT (9-52) IU/L Alkaline Phosphatase (38-126) U/L Total Protein (6.3-8.2) g/dL Albumin (3.5-5.0) g/dL Globulin (1.7-4.1) g/dL Albumin/Globulin Ratio (1.0-2.8) Lipase (23-300) U/L Urine RBC 0-1/hpf (0-5/HPF) Urine WBC 0-1/hpf (0-5/HPF) Ur Squamous Epith Cells 0-1 /hpf (0-5/HPF) Urine Bacteria Moderate (10-30) H (None) Ur Culture Indicated? Specimen cultured Micro UA Comment Betty esterase + Point of care testing: Point of Care Testing Test Results Negative Urine Dip Bedside Urine Glucose Negative Bedside Urine Bilirubin - Negative Bedside Urine Ketone - Negative Urine Specific [place] 1.015 Bedside Urine Occult Blood +/- Bedside Urine pH 6.0 Bedside Urine Protein - Negative Bedside Urine Urobilinogen - Negative Bedside Urine Nitrite - Negative Bedside Urine Leukocytes +/- 15 Esterase Imaging Data pelvic US: Radiologist's impression: Lisset Diaz 28 F [address] [address] Ultrasound Report Signed Patient: Lisset Diaz MMR#: [id number] : 1990Acct:[id number] Age/Sex: 28 / FDate of Service: 04/17/19 Loc: ED Accession Number: [id number] Procedure: US pelvic complete Ordering Provider: Rosanne Mendez D.O. PROCEDURE: US PELVIC COMPLETE INDICATIONS: HX PELVIC CONGESTIVE SYNDROME; PAIN TECHNIQUE: Real-time scanning was performed of the pelvic organs, with image documentation. Additional endovaginal scanning was necessary due to incomplete visualization of the adnexal and endometrial structures by transabdominal scanning. COMPARISON: [facility], CT, CT ABDOMEN PELVIS W CON, 04/11/2018, 16:36. FINDINGS: Transabdominal scanning: Limited scanning through the kidneys shows no hydronephrosis. No pathologic free abdominal or pelvic fluid. Endovaginal scanning: Uterus: Uterus is normal in size at the 7.5 x 3.7 x 5.2 cm. The endometrium measures 9 mm in combined thickness. Increased vascularity along the periphery uterus is present. There is heterogeneity of the endometrium without a definable endometrial quality. No focal myometrial lesions are present. Ovaries: The right ovary measures 3.1 x 1.9 x 1.7 cm. The left ovary measures 2.3 x 1.9 x 3.3 cm. Both ovaries are normal in size without cystic or solid mass. Blood flow is demonstrated to both ovaries, which have a normal arterial Doppler waveform. IMPRESSION: 1. Mild heterogeneity of the uterus is nonspecific and may be within normal limits. No definable uterine abnormalities are appreciated. There is slight increased vascularity to the uterus itself, which may be seen in the setting of pelvic congestion syndrome. 2. Unremarkable ovaries. Dictated by: Henok Teixeira M.D. on 04/17/2019 at 14:25 Approved by: Henok Teixeira M.D. on 04/17/2019 at 14:28 [facility] Narrative Medical decision making narrative: Ultrasound shows some mild heterogeneity of the uterus which is nonspecific could be within normal limits. There is slight increased vascularity to the uterus itself which could be seen in the setting of pelvic congestion syndrome. Unremarkable ovaries. Lab work otherwise is. Patient's exam is fairly benign. Discussed with patient plan for DC home. She has hydrocodone at home which she can continue and to follow up with her physician. Labs were nondiagnostic. Patient has some bacteria urine positive for leukocyte esterase negative for nitrate and sent for culture. Discharge Plan Departure Patient Disposition: Home Clinical Impression: Abdominal pain Discharge Date/Time: 04/17/19 16:10 Interventions: ED Discharge Assessment Last Done: 04/17/19 16:10 Instructions: DI for Abdominal Pain-Adult Activity Restrictions/Additional Instructions: Follow up with your physician in the next week. Call for an appointment. Continue home medications including your pain medication as prescribed. Return to the emergency department for fevers greater 100.4 F, rapidly worsening pain, persistent vomiting, black or bloody stools, difficulty with urination, no vaginal bleeding or discharge or other new or concerning symptoms. Prescriptions: No Action ibuprofen 200 mg Tablet 1 dose PO PRN PRN (Reason: pain) RF: 0 hydrocodone-acetaminophen 1 tab PO PRN PRN (Reason: pain) RF: 0 Referrals: Savi Orta DO [Non-Staff] -
[2019-04-17 14:23] LABS: Add Manual Diff / Slide Review NO; Basophils Absolute Auto 100 /uL (0-100); Basophils Percent Auto 0.6 % (0-2); Eosinophils Absolute Auto 100 /uL (0-450); Eosinophils Percent Auto 0.9 % (2-4); Hematocrit 39.2 % (36-46); Hemoglobin 13.4 g/dL (12.0-16.0); Lymphocytes Absolute Auto 2900 /uL (1100-4500); Lymphocytes Percent Auto 29.7 % (25-40); Mean Corpuscular HGB Conc 34.3 % (30-36); Mean Corpuscular Hemoglobin 29.6 PG (26-34); Mean Corpuscular Volume 86.5 fL (80-100); Monocytes Absolute Auto 800 /uL (0-900); Monocytes Percent Auto 7.8 % (3-14); Neutrophils Absolute Auto 6000 /uL (1500-7000); Platelet Count 355 X10^3/uL (150-400); Red Blood Cell Count 4.53 X10^6/uL (4.0-5.2); Red Cell Distribution Width 12.7 % (11.6-14.8); White Blood Cell Count 9.8 X10^3/uL (4.5-11.0)
[2019-04-17 14:37] LABS: Alanine Aminotransferase 17 IU/L (9-52); Albumin 4.2 g/dL (3.5-5.0); Albumin Globulin Ratio 1.4 (1.0-2.8); Alkaline Phosphatase 59 U/L (38-126); Aspartate Aminotransferase 18 IU/L (14-36); Bilirubin Total 0.4 mg/dL (0.2-1.3); Blood Urea Nitrogen 7 mg/dL (7-17); Calcium 9.4 mg/dL (8.4-10.2); Carbon Dioxide 25 mmol/L (22-32); Chloride 106 mmol/L (98-107); Estimated Glomerular Filt Rate > 60.0 mL/min (>60); Globulin 2.9 g/dL (1.7-4.1); Glucose 91 mg/dL (70-100); HEMOLYSIS < 15 (0-50); Lipase 136 U/L (23-300); Potassium 4.1 mmol/L (3.4-5.1); Sodium 140 mmol/L (137-145); Total Protein 7.1 g/dL (6.3-8.2)
[2019-04-17 15:49] LABS: RBC Urine 0-1/HPF (0-5/HPF); Squamous Epithelial Cell Urine 0-1 /HPF (0-5/HPF); WBC Urine 0-1/HPF (0-5/HPF)
[2019-04-17 15:50] LABS: Bacteria Urine Moderate (10-30); Culture Indicated Urine Specimen Cultured; Urine Comments LEU ESTERASE +
[2019-04-17 16:08] VITALS: BP 102/72; PULSE 72; RESP 18; TEMP 36.7; O2SAT 98
== END 2019-04-17 16:10 | disposition home or self-care (01) ==
PROVIDERS: Nurse Practitioner Family; Emergency Provider Emergency Medicine
DX: R10.9 Unspecified abdominal pain (principal)
CPT/HCPCS: 36415; 76856; 80053; 81003; 81015; 81025; 83690; 85025; 87086; 99282; 99284

== ENCOUNTER 2019-07-13 16:03 | Emergency (ER) | payer OTHER, SELFPAY ==
[2019-07-13 16:14] VITALS: BP 116/73; PULSE 81; RESP 15; TEMP 36.6; O2SAT 99
--- NOTE | 2019-07-13 16:17 | DI.CT.S_ITS ---
PROCEDURE: CT ABDOMEN PELVIS W CON INDICATIONS: rlq pain TECHNIQUE: After the administration of intravenous contrast, 5 mm thick sections acquired from the diaphragm to the symphysis. 5 mm coronal and sagittal reformats were acquired. For radiation dose reduction, the following was used: automated exposure control, adjustment of mA and/or kV according to patient size. COMPARISON: [facility], US, US PELVIC COMPLETE, 04/17/2019, 14:26. [facility], CT, CT ABDOMEN PELVIS W CON, 04/11/2018, 16:36. FINDINGS: Image quality: Excellent. ABDOMEN: Lung bases: Lung bases are clear. Heart size is normal. Solid organs: Liver is normal in size and enhancement. Gallbladder within normal limits. Biliary system is non dilated. Pancreas enhances normally. Spleen is normal in size and enhancement. No adrenal nodules. Kidneys demonstrate normal size and enhancement, without hydronephrosis. Peritoneum and bowel: Bowel loops demonstrate normal wall thickness and caliber. Cecum is currently rotated centrally. Normal appendix. No free fluid or air. Nodes and vessels: No retroperitoneal or mesenteric adenopathy by size criteria. Aorta and inferior vena cava are normal in size. Retroaortic left renal vein. Miscellaneous: No ventral hernias. There is 4 cm diastases of the abdominal wall. The PELVIS: Genitourinary: Bladder wall thickness is normal. Uterus anteverted. 1.9 cm cyst in the right ovary which is positioned in the right lower abdomen. 1.5 cm cyst of the left ovary. Miscellaneous: No inguinal hernias or adenopathy. Bones: No suspicious bony lesions. No vertebral body compression fractures. IMPRESSION: Normal appendix. 1.9 cm cyst in the right ovary which is currently positioned in the right lower abdomen. 4 cm rectus diastases. Dictated by: Christophe Menjivar M.D. on 07/13/2019 at 16:18 Approved by: Christophe Menjivar M.D. on 07/13/2019 at 16:31
--- NOTE | 2019-07-13 16:19 | ED.ABDPAIN ---
HPI - Abdominal Pain General Chief Complaint: Abdominal Pain Stated Complaint: pain right side abdomen Time Seen by Provider: 07/13/19 16:09 Source: patient Mode of arrival: Ambulatory Limitations: no limitations History of Present Illness HPI narrative: The patient is a 28-year-old female who presents with right lower quadrant pain that started today. She says she was doing well yesterday she has had no issue she has felt nauseous today she has no appetite. Hurts every time she moves. She denies any fevers or chills no painful or frequent urination. She has no flank pain. The car ride over here hurt and moving her right leg hurts. MD complaint: abdominal pain Onset (ago): day(s) (1) Pain Consistency: constant Location: RLQ Severity: moderate Quality: stabbing Radiation: none Migration to: no migration Relieving factors: nothing Related Data Home Medications Medication Instructions Recorded Confirmed hydrocodone-acetaminophen 1 tab PO PRN PRN 04/17/19 04/17/19 ibuprofen 1 dose PO PRN PRN 04/17/19 04/17/19 Previous Rx's Medication Instructions Recorded hydrocodone-acetaminophen [[place]] 1 tab PO Q6H PRN #10 tab 07/13/19 Allergies Allergy/AdvReac Type Severity Reaction Status Date / Time cefaclor [From Ceclor] Allergy Verified 07/13/19 16:14 Review of Systems Review of Systems Narrative: GENERAL: Denies chills, fatigue, malaise, fever, sweats, travel HEENT: Denies sinus pain, ear pain, sore throat, difficulty swallowing, neck pain RESPIRATORY: Denies dyspnea, cough, wheezing, hemoptysis, sputum. CARDIOVASCULAR: Denies chest pain, palpitations, orthopnea, edema GASTROINTESTINAL: See HPI : Denies dysuria, frequency, incontinence, hematuria, urinary retention, flank pain. MUSCULOSKELETAL: Denies weakness, joint pain, or bony pain SKIN: No rash, no erythema, no pruritus NEUROLOGIC: Denies weakness, dizziness, headache, numbness, change in speech, confusion PSYCHIATRIC: No concerning psychosocial issues. 12 point review of systems is negative except for those stated above and HPI Patient History Medical History Pelvic congestion syndrome (Acute) Social History Smoking Status: Never smoker Social History Smoking Status: Never smoker alcohol intake frequency: holidays/special occasions only Substance Use Type: does not use Exam Initial Vital Signs Initial Vital Signs: Vital Signs Temperature 97.8 F 07/13/19 16:14 Pulse Rate 81 07/13/19 16:14 Respiratory Rate 15 07/13/19 16:14 Blood Pressure 116/73 07/13/19 16:14 Pulse Oximetry 99 07/13/19 16:14 GENERAL: Well-appearing, well-nourished and in no acute distress. HEENT: Head atraumatic,EOMI, pupils reactive, face symmetric, CARDIOVASCULAR: Regular rate and rhythm without murmurs, rubs or gallops. RESPIRATORY: Breath sounds equal bilaterally, no wheezes rales or rhonchi. ABDOMEN: Soft, tender right lower quadrant no guarding no rebound no Rangel signs minimal right upper quadrant pain : No CVA tenderness EXTREMITIES: Normal range of motion, no clubbing or edema. Neurovascularly intact NEUROLOGICAL: Alert and oriented x4.Normal gait and speech. SKIN: Warm, dry, no laceration, no petechiae, no rashes or lesions. Course Orders Ordered: Discontinued Medications Hydromorphone HCl (Dilaudid) 0.5 mg IV NOW ONE Stop: 07/13/19 16:17 Last Admin: 07/13/19 16:39 Dose: 0.5 mg Documented by: MEISENB Sodium Chloride (Normal Saline 0.9%) 1,000 mls @ 150 mls/hr IV CONT DAGO Last Infusion: 07/13/19 20:09 Dose: 0 mls/hr Documented by: Admin: 07/13/19 16:39 Dose: 150 mls/hr Documented by: MEISENB Ketorolac Tromethamine (Toradol) 30 mg IV NOW ONE Stop: 07/13/19 19:38 Last Admin: 07/13/19 19:44 Dose: 30 mg Documented by: SONY Ondansetron HCl (Zofran) 4 mg IV NOW ONE Stop: 07/13/19 17:52 Last Admin: 07/13/19 17:54 Dose: 4 mg Documented by: SONY Vital Signs Vital signs: Vital Signs - 8 hr 07/13/19 16:14 07/13/19 16:32 Temperature 97.8 F Pulse Rate 81 70 Respiratory Rate 15 16 Blood Pressure 116/73 Blood Pressure [Right Arm] 106/66 Pulse Oximetry 99 100 MDM - Abdominal Pain Lab Data Attestation: I reviewed the patient's lab results. Result diagrams: 07/13/19 16:25 07/13/19 16:25 Labs: Lab Results 07/13/19 07/13/19 Range/Units 16:25 16:25 WBC 9.2 (4.5-11.0) X10^3/uL RBC 4.64 (4.0-5.2) X10^6/uL Hgb 13.4 (12.0-16.0) g/dL Hct 40.9 (36-46) % MCV 88.2 (80-100) fL MCH 29.0 (26-34) PG MCHC 32.9 (30-36) % RDW 12.8 (11.6-14.8) % Plt Count 335 (150-400) X10^3/uL Neut % (Auto) 64.5 (50-75) % Lymph % (Auto) 28.0 (25-40) % [place] % (Auto) 6.5 (3-14) % Eos % (Auto) 0.6 L (2-4) % Baso % (Auto) 0.4 (0-2) % Neut # (Auto) 6000 (7620-8788) /uL Lymph # (Auto) 2600 (1838-0884) /uL [place]es # (Auto) 600 (0-900) /uL Eos # (Auto) 100 (0-450) /uL Baso # (Auto) 0 (0-100) /uL Sodium 141 (137-145) mmol/L Potassium 3.9 (3.4-5.1) mmol/L Chloride 103 (98-107) mmol/L Carbon Dioxide 29 (22-32) mmol/L BUN 4 L (7-17) mg/dL Creatinine 0.60 (0.52-1.04) mg/dL Estimated GFR > 60.0 (>60) mL/min BUN/Creatinine Ratio 6.7 (6-22) Glucose 92 (70-100) mg/dL Calcium 9.5 (8.4-10.2) mg/dL Total Bilirubin 0.6 (0.2-1.3) mg/dL AST 26 (14-36) IU/L ALT 21 (9-52) IU/L Alkaline Phosphatase 73 (38-126) U/L Total Protein 7.6 (6.3-8.2) g/dL Albumin 4.5 (3.5-5.0) g/dL Globulin 3.1 (1.7-4.1) g/dL Albumin/Globulin Ratio 1.5 (1.0-2.8) Lipase 125 (23-300) U/L Point of care testing: Point of Care Testing Test Results Negative Urine Dip Bedside Urine Glucose Negative Bedside Urine Bilirubin - Negative Bedside Urine Ketone +/- 5 Urine Specific [place] 1.015 Bedside Urine Occult Blood +/- Bedside Urine pH 6.0 Bedside Urine Protein - Negative Bedside Urine Urobilinogen - Negative Bedside Urine Nitrite - Negative Bedside Urine Leukocytes - Negative Esterase Imaging Data CT scan - abdomen: Radiologist's impression: PROCEDURE: CT ABDOMEN PELVIS W CON INDICATIONS: rlq pain TECHNIQUE: After the administration of intravenous contrast, 5 mm thick sections acquired from the diaphragm to the symphysis. 5 mm coronal and sagittal reformats were acquired. For radiation dose reduction, the following was used: automated exposure control, adjustment of mA and/or kV according to patient size. COMPARISON: [facility], US, US PELVIC COMPLETE, 04/17/2019, 14:26. [facility], CT, CT ABDOMEN PELVIS W CON, 04/11/2018, 16:36. FINDINGS: Image quality: Excellent. ABDOMEN: Lung bases: Lung bases are clear. Heart size is normal. Solid organs: Liver is normal in size and enhancement. Gallbladder within normal limits. Biliary system is non dilated. Pancreas enhances normally. Spleen is normal in size and enhancement. No adrenal nodules. Kidneys demonstrate normal size and enhancement, without hydronephrosis. Peritoneum and bowel: Bowel loops demonstrate normal wall thickness and caliber. Cecum is currently rotated centrally. Normal appendix. No free fluid or air. Nodes and vessels: No retroperitoneal or mesenteric adenopathy by size criteria. Aorta and inferior vena cava are normal in size. Retroaortic left renal vein. Miscellaneous: No ventral hernias. There is 4 cm diastases of the abdominal wall. The PELVIS: Genitourinary: Bladder wall thickness is normal. Uterus anteverted. 1.9 cm cyst in the right ovary which is positioned in the right lower abdomen. 1.5 cm cyst of the left ovary. Miscellaneous: No inguinal hernias or adenopathy. Bones: No suspicious bony lesions. No vertebral body compression fractures. IMPRESSION: Normal appendix. 1.9 cm cyst in the right ovary which is currently positioned in the right lower abdomen. 4 cm rectus diastases. Dictated by: Christophe Menjivar M.D. on 07/13/2019 at 16:18 pelvic US: Radiologist's impression: PROCEDURE: US PELVIC COMPLETE INDICATIONS: RIGHT PELVIC PAIN TECHNIQUE: Real-time scanning was performed of the pelvic organs, with image documentation. Additional endovaginal scanning was necessary due to incomplete visualization of the adnexal and endometrial structures by transabdominal scanning. COMPARISON: CT abdomen and pelvis 07/13/2019 [facility], , US PELVIC COMPLETE, 04/17/2019, 14:26. FINDINGS: Transabdominal scanning: Limited scanning through the kidneys shows no hydronephrosis. No pathologic free abdominal or pelvic fluid. Endovaginal scanning: Uterus: Uterus is anteverted and normal in size at 8.8 x 3.7 x 5.2 cm. No mass. The endometrium measures 8 mm in combined thickness. Ovaries: Within normal limits. Symmetric blood flow. Right ovary measures 4.1 x 1.6 x 2.3 cm. Left ovary measures 4.2 x 2.3 x 2.6 cm. Small simple left ovarian cyst measuring 2 x 2.2 x 1.9 cm. IMPRESSION: 1. Normal ovaries. Small simple left ovarian cyst. No free fluid in the pelvis. 2. Normal uterus and endometrium. Dictated by: Giovanny Fernandez M.D. on 07/13/2019 at 19:52 MDM Narrative Medical decision making narrative: Patient has right ovarian cyst. No leukocytosis appendix is noted to be normal on CT. Recommend outpatient follow-up and repeat ultrasound. Discharge Plan Departure Patient Disposition: Home Clinical Impression: Cyst of right ovary Discharge Date/Time: 07/13/19 20:11 Instructions: DI for Ovarian Cyst Activity Restrictions/Additional Instructions: *You have been diagnosed with right ovarian cyst *What to do: Recommend repeat pelvic ultrasound in about 1-2 months to be sure of resolution. *Continue to take medications as directed [place] 1 tablet every 6 hours only if needed for severe pain *Follow up with your primary care provider in 2-3 days *Return to ER if you should have increased pain, fevers or any new, worsening or concerning symptoms CONTROLLED SUBSTANCE DISCHARGE (Narcotoic/benzodiazepine/Flexeril/Phenergan) 1. You have been prescribed narcotic medications, it does have acetaminophen/Tylenol/paracetamol in it so do not take extra Tylenol or Tylenol containing products 2. Please understand that we cannot provide further refills of narcotics, benzodiazepines or controlled substances through the ED and her pain management will need to be through your provider. 3. While on these medications you cannot drive or operate heavy machinery. 4. You cannot sign legal documents or perform any duties such as this. 5. As long as you're taking opiate pain medications he should also be taking a stool softener such as Colace, Dulcolax, MiraLAX or prune juice, to help avoid constipation. Prescriptions: New hydrocodone-acetaminophen [[place]] 5-325 mg tablet 1 tab PO Q6H PRN (Reason: pain) Qty: 10 RF: 0 No Action ibuprofen 200 mg Tablet 1 dose PO PRN PRN (Reason: pain) RF: 0 hydrocodone-acetaminophen 1 tab PO PRN PRN (Reason: pain) RF: 0
[2019-07-13 16:32] VITALS: BP 106/66; PULSE 70; RESP 16; O2SAT 100
[2019-07-13] MEDS: SODIUM CHLORIDE 0.9% 1,000 ML 150 ML IV (16:39)
[2019-07-13] MEDS: HYDROMORPHONE 0.5 MG INJ IV (16:39)
[2019-07-13 16:42] LABS: Add Manual Diff / Slide Review NO; Basophils Absolute Auto 0 /uL (0-100); Basophils Percent Auto 0.4 % (0-2); Eosinophils Absolute Auto 100 /uL (0-450); Eosinophils Percent Auto 0.6 % (2-4); Hematocrit 40.9 % (36-46); Hemoglobin 13.4 g/dL (12.0-16.0); Lymphocytes Absolute Auto 2600 /uL (1100-4500); Mean Corpuscular HGB Conc 32.9 % (30-36); Mean Corpuscular Volume 88.2 fL (80-100); Monocytes Absolute Auto 600 /uL (0-900); Monocytes Percent Auto 6.5 % (3-14); Neutrophils Absolute Auto 6000 /uL (1500-7000); Neutrophils Percent Auto 64.5 % (50-75); Platelet Count 335 X10^3/uL (150-400); Red Blood Cell Count 4.64 X10^6/uL (4.0-5.2); Red Cell Distribution Width 12.8 % (11.6-14.8); White Blood Cell Count 9.2 X10^3/uL (4.5-11.0)
[2019-07-13 16:58] LABS: Alanine Aminotransferase 21 IU/L (9-52); Albumin 4.5 g/dL (3.5-5.0); Albumin Globulin Ratio 1.5 (1.0-2.8); Alkaline Phosphatase 73 U/L (38-126); Aspartate Aminotransferase 26 IU/L (14-36); BUN Creatinine Ratio 6.7 (6-22); Bilirubin Total 0.6 mg/dL (0.2-1.3); Blood Urea Nitrogen 4 mg/dL (7-17); Calcium 9.5 mg/dL (8.4-10.2); Carbon Dioxide 29 mmol/L (22-32); Chloride 103 mmol/L (98-107); Estimated Glomerular Filt Rate > 60.0 mL/min (>60); Globulin 3.1 g/dL (1.7-4.1); Glucose 92 mg/dL (70-100); HEMOLYSIS < 15 (0-50); Lipase 125 U/L (23-300); Potassium 3.9 mmol/L (3.4-5.1); Sodium 141 mmol/L (137-145); Total Protein 7.6 g/dL (6.3-8.2)
[2019-07-13] MEDS: ONDANSETRON 4 MG/2 ML INJ IV (17:54)
--- NOTE | 2019-07-13 17:56 | DI.US.S_ITS ---
PROCEDURE: US PELVIC COMPLETE INDICATIONS: RIGHT PELVIC PAIN TECHNIQUE: Real-time scanning was performed of the pelvic organs, with image documentation. Additional endovaginal scanning was necessary due to incomplete visualization of the adnexal and endometrial structures by transabdominal scanning. COMPARISON: CT abdomen and pelvis 07/13/2019 [facility], , US PELVIC COMPLETE, 04/17/2019, 14:26. FINDINGS: Transabdominal scanning: Limited scanning through the kidneys shows no hydronephrosis. No pathologic free abdominal or pelvic fluid. Endovaginal scanning: Uterus: Uterus is anteverted and normal in size at 8.8 x 3.7 x 5.2 cm. No mass. The endometrium measures 8 mm in combined thickness. Ovaries: Within normal limits. Symmetric blood flow. Right ovary measures 4.1 x 1.6 x 2.3 cm. Left ovary measures 4.2 x 2.3 x 2.6 cm. Small simple left ovarian cyst measuring 2 x 2.2 x 1.9 cm. IMPRESSION: 1. Normal ovaries. Small simple left ovarian cyst. No free fluid in the pelvis. 2. Normal uterus and endometrium. Dictated by: Giovanny Fernandez M.D. on 07/13/2019 at 19:52 Approved by: Giovanny Fernandez M.D. on 07/13/2019 at 19:56
[2019-07-13] MEDS: KETOROLAC 60 MG/2 ML VIAL 30 MG IV (19:44)
[2019-07-13 19:46] VITALS: BP 107/62; PULSE 70; RESP 16; O2SAT 98
[2019-07-13 20:10] VITALS: BP 107/62; PULSE 56
== END 2019-07-13 20:11 | disposition home or self-care (01) ==
PROVIDERS: Emergency Provider Emergency Medicine
DX: N83.201 Unspecified ovarian cyst, right side (principal)
CPT/HCPCS: 36415; 74177; 76830; 76856; 80053; 81003; 81025; 83690; 85025; 96374; 96375; 99283; 99284; J1170; J1885; J2405; Q9967

== ENCOUNTER 2019-11-17 20:18 | Emergency (ER) | payer OTHER, SELFPAY ==
[2019-11-17 20:40] VITALS: BP 110/69; PULSE 70; RESP 20; TEMP 36.6; O2SAT 99
--- NOTE | 2019-11-17 22:59 | PC.NURSE ---
reports awaking in 08/04 pelvic/abdominal pain. Since has resolved to 03/04 sharp stabbing pain. Denies N/V/D. Reports scant yellowish thick discharge immediately after event. Provider at bedside
[2019-11-17 23:01] LABS: RBC Urine None Seen (0-5/HPF); WBC Urine None Seen (0-5/HPF)
[2019-11-17 23:02] LABS: Appearance Urine UA CLEAR; Bilirubin Urine UA NEGATIVE (NEGATIVE); Color Urine UA YELLOW; Glucose Urine UA NEGATIVE (Negative); Ketones Urine UA TRACE (NEGATIVE); Leukocyte Esterase Urine UA NEGATIVE (NEGATIVE); Nitrite Urine UA NEGATIVE (Negative); Occult Blood Urine UA TRACE-LYSED (Negative); Protein Urine UA NEGATIVE (Negative); Specific Gravity Urine UA 1.025 (1.000-1.035); Urobilinogen Urine UA 0.2 E.U./dL (0.2); pH Urine UA 5.5 (4.5-8.0)
[2019-11-17 23:05] LABS: Bacteria Urine Moderate (10-30); Squamous Epithelial Cell Urine 10-30 /HPF (0-5/HPF)
[2019-11-17 23:06] LABS: Culture Indicated Urine Cult Not Indicated
--- NOTE | 2019-11-18 01:29 | ED.PREGNANCY ---
HPI - General Chief complaint: OB/Uterine Contractions Stated complaint: pelvic pain, 9 wks preg Time Seen by Provider: 11/17/19 22:55 Source: patient Mode of arrival: Ambulatory History of Present Illness HPI Narrative: at 9 weeks presents complaining of acute sharp tearing type pain radiating from her pubic symphysis up toward her umbilicus. She had been lying on the couch and went to set up the pain was so sharp that she immediately laid back and had difficulty moving again. She contacted her Ob who suggested ER evaluation. She is having no fevers, diarrhea, vomiting, vaginal discharge or fluid leaking, no deep pelvic cramping, no coughing and no diaphoresis. Related Data Home Medications Medication Instructions Recorded Confirmed hydrocodone-acetaminophen 1 tab PO PRN PRN 04/17/19 04/17/19 ibuprofen 1 dose PO PRN PRN 04/17/19 04/17/19 Previous Rx's Medication Instructions Recorded hydrocodone-acetaminophen [[place]] 1 tab PO Q6H PRN #10 tab 07/13/19 Allergies Allergy/AdvReac Type Severity Reaction Status Date / Time cefaclor [From Ceclor] Allergy Verified 07/13/19 16:14 Review of Systems Review of Systems Narrative: All systems reviewed and are unremarkable except as noted in HPI and below PMFSH - Past Medical History Medical history: Reports no medical history Exam Narrative Exam Narrative: General: Alert appropriate in no acute distress Respiratory: Able to speak in full sentences, no obvious respiratory distress Skin: No obvious rashes, warm and dry Abdomen: No flank pain, soft, nontender. She does have an umbilical hernia without incarceration or tenderness Neurologic: Grossly intact no obvious asymmetries or abnormalities Psych, appropriate insight and affect, cooperative Bedside ultrasound reveals single viable intrauterine with heart rate in the 160 range. No free fluid in the pelvis and no obvious adnexal masses Initial Vital Signs Initial Vital Signs: Vital Signs Temperature 97.9 F 11/17/19 20:40 Pulse Rate 70 11/17/19 20:40 Respiratory Rate 20 11/17/19 20:40 Blood Pressure 110/69 11/17/19 20:40 Pulse Oximetry 99 11/17/19 20:40 Course Orders Ordered: ED Orders 11/17/19 22:55 Urinalysis and Microscopic Stat Vital Signs Vital signs: Vital Signs - 8 hr 11/17/19 20:40 Temperature 97.9 F Pulse Rate 70 Respiratory Rate 20 Blood Pressure 110/69 Pulse Oximetry 99 MDM - OB/Uterine Contractions Medical Records Attestation: I reviewed the patient's medical records. Lab Data Labs: Lab Results 11/17/19 Range/Units 22:55 Urine Color Yellow Urine Appearance Clear Urine pH 5.5 (4.5-8.0) Ur Specific [place] 1.025 (1.000-1.035) Urine Protein Negative (Negative) Urine Glucose (UA) Negative (Negative) g/dL Urine Ketones Trace H (NEGATIVE) Urine Occult Blood Trace-lysed (Negative) Urine Nitrate Negative (Negative) Urine Bilirubin Negative (NEGATIVE) Urine Urobilinogen 0.2 (0.2) E.U./dL Ur Leukocyte Esterase Negative (NEGATIVE) Urine RBC None seen (0-5/HPF) Urine WBC None seen (0-5/HPF) Ur Squamous Epith Cells 10-30 /hpf H D (0-5/HPF) Urine Bacteria Moderate (10-30) H (None) Ur Culture Indicated? Cult not indicated MDM Narrative Medical decision making narrative: Uncertain the etiology for the superficial pelvic pain. She does have an umbilical hernia and I am wondering if part of the pain may have been as slight tearing of of fascial layer related to that hernia. Clearly no evidence of incarcerated hernia or significant abdominal pathology. She is reassured regarding the viability of her . Pain has diminished over the course of the hours since initially started. She is safe for home discharge at this time Discharge Plan Departure Patient Disposition: Home Clinical Impression: Abdominal wall pain Intrauterine normal Qualifiers: Trimester: first trimester Qualified Code(s): Z34.91 - Encounter for supervision of normal , unspecified, first trimester Discharge Date/Time: 11/17/19 23:15 Instructions: DI for Miscarriage Activity Restrictions/Additional Instructions: Thank you for coming in today I am very pleased to let you know that I do not think that the pain that you experience today is related to your . You have a beautiful single baby growing nicely in your uterus with out any evidence of problems at this time. With the acute onset while your sitting up and the severity of the pain I am wondering if you are experiencing a small hernia. You do have an umbilical hernia and it may have been a slight exacerbation of this it may also have been slight disruption closer to your lower abdominal wall. On your clinical exam there clearly is no evidence of incarcerated hernia. At this point it is okay to use Tylenol to cover up the pain. If you find that the symptoms are changing or your developing new problems please return to the emergency room and I am happy to re-evaluate Prescriptions: No Action ibuprofen 200 mg Tablet 1 dose PO PRN PRN (Reason: pain) RF: 0 hydrocodone-acetaminophen 1 tab PO PRN PRN (Reason: pain) RF: 0 hydrocodone-acetaminophen [[place]] 5-325 mg tablet 1 tab PO Q6H PRN (Reason: pain) Qty: 10 RF: 0
== END 2019-11-17 23:15 | disposition home or self-care (01) ==
PROVIDERS: Emergency Provider Emergency Medicine
DX: R10.9 Unspecified abdominal pain (principal)
CPT/HCPCS: 81001; 99281; 99283